=== PATIENT | female | born 1955 | race Caucasian/White ===

== ENCOUNTER 2022-10-10 11:18 | Outpatient (CLI) | payer MEDICARE, OTHER | END 2022-10-10 11:19 | disposition home or self-care (01) | LOC: SCSRAD 11:18 | PROVIDERS: ATTEND Internal Medicine Rheumatology | DX: M54.50 Low back pain, unspecified (principal); M47.817 Spondylosis without myelopathy or radiculopathy, lumbosacral region; M47.816 Spondylosis without myelopathy or radiculopathy, lumbar region; M77.8 Other enthesopathies, not elsewhere classified; M47.896 Other spondylosis, lumbar region | CPT/HCPCS: 72100 ==

== ENCOUNTER 2022-10-19 09:46 | Outpatient (CLI) | payer MEDICARE, OTHER | END 2022-10-19 09:47 | disposition home or self-care (01) | LOC: SCSCT 09:46 | PROVIDERS: ATTEND Orthopaedic Surgery | DX: M06.852 Other specified rheumatoid arthritis, left hip (principal); M05.862 Other rheumatoid arthritis with rheumatoid factor of left knee; M16.12 Unilateral primary osteoarthritis, left hip ==

== ENCOUNTER 2022-11-23 07:22 | Outpatient (CLI) | payer MEDICARE, OTHER ==
[2022-11-23 09:05] LABS: #Basophils 0.1 10x3/uL (0.0-0.2); #Eosinphils 0.2 10x3/uL (0.0-0.5); #Monocytes 0.8 10x3/uL (0.0-1.1); #Neutrophils 3.8 10x3/uL (1.5-8.4); %Eosinophils 2.4 % (0.0-6.0); %Lymphocytes 22.9 % (18.0-47.0); %Monocytes 12.9 % (0.0-10.0); %Neutrophils 60.3 % (40.0-75.0); Hemoglobin 12.7 g/dL (12.0-15.5); Mean Corpuscular HGB CONC 34.2 g/dL (32.0-36.0); Mean Corpuscular Hemoglobin 31.4 pg (27.0-33.0); Mean Corpuscular Volume 91.8 fl (81.6-98.3); Mean Platelet Volume 8.8 fl (7.4-10.4); Platelet Count 254 10x3/uL (150-450); RBC Distribution Width 13.1 % (11.5-14.5); Red Blood Cell (RBC) Count 4.04 10x6/uL (3.90-5.03); White Blood Cell (WBC) Count 6.3 10x3/uL (3.5-10.5)
[2022-11-23 09:17] LABS: Prothrombin Time 10.4 sec (9.5-12.1)
[2022-11-23 09:21] LABS: Anion Gap 14 mmol/L (10-20); BUN (Urea Nitrogen) 15 mg/dL (9.8-20.1); Calc. Creatinine Clearance 0 mL/min (70-130); Carbon Dioxide 26 mmol/L (23-31); Chloride 99 mmol/L (98-107); Estimated GFR 95; Glucose 99 mg/dL (80-115); Potassium 3.9 mmol/L (3.5-5.1); Sodium 135 mmol/L (136-145)
== END 2022-11-23 07:23 | disposition home or self-care (01) ==
LOC: LABBT 07:22
PROVIDERS: ATTEND Orthopaedic Surgery
DX: Z01.812 Encounter for preprocedural laboratory examination (principal); M06.852 Other specified rheumatoid arthritis, left hip
CPT/HCPCS: 80048; 85025; 85610; 87081

== ENCOUNTER 2022-11-28 06:38 | Observation (INO) | payer MEDICARE, OTHER ==
[2022-11-28] MEDS ORDERED: CEFAZOLIN 2 GM VIAL ONE (07:09)
[2022-11-28] MEDS ORDERED: Sodium Chloride 0.9% 100 ML ONE ×2 (07:09→07:11)
[2022-11-28] MEDS ORDERED: Tranexamic Acid 1,000 MG/10 ML VIAL ONE (07:09)
[2022-11-28] MEDS ORDERED: Vancomycin (BATCH) 1.5 GRAM/300 ML BAG ONE (07:11)
[2022-11-28] MEDS ORDERED: Midazolam HCl 2 mg/2 ml Vial ONE (07:12)
[2022-11-28] MEDS ORDERED: Fentanyl 100 MCG/2 ML VIAL ONE (07:12)
[2022-11-28] MEDS ORDERED: Ropivacaine 0.5% HCl/PF (150 MG/30 ML VIAL) ONE (07:16)
[2022-11-28 07:35] LABS: SARS-CoV-2 NAA Rapid Test Not Detected (NotDetected)
[2022-11-28] MEDS ORDERED: Promethazine HCl 25 MG/ML VIAL IM PRN ×2 (07:45→10:28)
[2022-11-28] MEDS ORDERED: traMADol HCl 50 MG TAB PO PRN ×2 (07:45)
[2022-11-28] MEDS ORDERED: diphenhydrAMINE 50 MG/ML VIAL IVP PRN (07:45)
[2022-11-28] MEDS ORDERED: Naloxone HCl 0.4 mg/ml Vial IV PRN (07:45)
[2022-11-28] MEDS ORDERED: Naloxone HCl 0.4 mg/ml Vial IVP PRN (07:45)
[2022-11-28] MEDS ORDERED: Promethazine HCl 25 MG SUPP PR PRN (07:45)
[2022-11-28] MEDS ORDERED: Moisturizing Cream (Eucerin) 113 GM JAR TOP PRN (07:45)
[2022-11-28] MEDS ORDERED: Ondansetron PF 4 MG/2 ML Vial IVP PRN ×2 (07:45→10:28)
[2022-11-28] MEDS ORDERED: HYDROcodone/Acetaminophen 5/325 mg Tablet PO PRN ×2 (07:45)
[2022-11-28] MEDS ORDERED: diphenhydrAMINE 50 MG/ML VIAL IM PRN (07:45)
[2022-11-28] MEDS ORDERED: diphenhydrAMINE 25 MG CAP PO PRN ×2 (07:45→10:28)
[2022-11-28] MEDS ORDERED: FENTANYL 500 MCG/10 ML VIAL 500 MCG, Bupivacaine 0.75% 10 ML in Sodium Chloride 0.9% 80 ML EPIDURAL SCH (07:45)
[2022-11-28] MEDS ORDERED: Zolpidem Tartrate 5 MG TAB PO PRN ×2 (07:45→10:28)
[2022-11-28] MEDS ORDERED: Bupivacaine 0.25% 10 ML VIAL EPIDURAL PRN (07:45)
[2022-11-28] MEDS ORDERED: Lidocaine 1.5% w/Epi 1:200K 30 ML VIAL (Epid Use) ONE (07:50)
[2022-11-28] MEDS ORDERED: PROPOFOL 200 MG/20 ML VIAL ONE (08:08)
[2022-11-28] MEDS ORDERED: ePHEDrine 50 MG/ML VIAL ONE (08:08)
[2022-11-28] MEDS ORDERED: Lidocaine 1% PF 5 ML VIAL ONE (08:08)
[2022-11-28] MEDS ORDERED: PHENYLEPHRINE-NS 100 MCG/ML 10 ML SYRINGE ONE (08:08)
[2022-11-28] MEDS ORDERED: Rocuronium Bromide 10 MG/ML (10ML VIAL) ONE (08:08)
[2022-11-28] MEDS ORDERED: Ondansetron PF 4 MG/2 ML Vial ONE (08:08)
[2022-11-28] MEDS ORDERED: SUGAMMADEX SODIUM 200 MG/2 ML VIAL ONE (09:44)
[2022-11-28] MEDS ORDERED: Acetaminophen 325 MG TAB PO PRN (10:28)
[2022-11-28] MEDS ORDERED: Aspirin 81 mg Enteric Coated Tablet PO SCH (11:15)
[2022-11-28 13:18] VITALS: BMI 40.5
[2022-11-28] MEDS: Sodium Chloride 0.9% 1,000 ML IV SCH ×2 (13:21→23:45)
[2022-11-28] MEDS: Ketorolac Tromethamine 30 MG/ML VIAL IVP SCH ×3 (13:21→23:45)
[2022-11-28] MEDS: CEFAZOLIN 2 GM in Sodium Chloride 0.9% 100 ML IVPB SCH ×2 (16:36→23:45)
[2022-11-28] MEDS: Aspirin 81 mg Enteric Coated Tablet PO SCH (19:55)
[2022-11-28] MEDS ORDERED: Vancomycin 1.5 GRAM/300 ML BAG 1.5 GM in Premix Bag 1 BAG IVPB SCH (20:00)
[2022-11-29] MEDS: Ketorolac Tromethamine 30 MG/ML VIAL IVP SCH ×2 (05:27→12:06)
[2022-11-29 06:41] LABS: Hemoglobin 10.9 g/dL (12.0-16.0); Mean Corpuscular HGB CONC 32.6 g/dL (32.0-36.0); Mean Corpuscular Volume 98.2 fl (78.0-98.0); Mean Platelet Volume 6.3 fL (7.4-10.4); Platelet Count 228 10x3/uL (130-400); RBC Distribution Width 12.4 % (11.5-14.5); Red Blood Cell (RBC) Count 3.42 mill/uL (4.20-5.40); White Blood Cell (WBC) Count 10.2 10x3/uL (4.8-10.8)
[2022-11-29] MEDS: Sodium Chloride 0.9% 1,000 ML IV SCH (07:25)
[2022-11-29] MEDS ORDERED: Ferrous Gluconate 324 MG TAB PO SCH (08:00)
[2022-11-29] MEDS ORDERED: Senokot S 8.6-50 MG TAB PO SCH (09:00)
[2022-11-29] MEDS ORDERED: Multivitamin W/ Minerals 1 TAB PO SCH (09:00)
[2022-11-29] MEDS: Aspirin 81 mg Enteric Coated Tablet PO SCH (09:23)
[2022-11-29] MEDS ORDERED: HYDROcodone/Acetaminophen 10/325 mg Tablet PO PRN (09:27)
[2022-11-29] MEDS: HYDROcodone/Acetaminophen 10/325 mg Tablet PO PRN ×2 (09:30→14:12)
[2022-11-29] MEDS ORDERED: Cyclobenzaprine 10 MG TAB PO PRN (10:30)
[2022-11-29] MEDS ORDERED: traZODone HCl 50 MG TAB PO PRN (10:45)
[2022-11-29] MEDS ORDERED: Levothyroxine Sodium 75 MCG TAB PO SCH (10:45)
[2022-11-29] MEDS ORDERED: sulfaSALAzine 500 MG TAB PO SCH ×2 (11:00→21:00)
[2022-11-29] MEDS ORDERED: Meloxicam 15 MG TAB PO SCH (11:00)
[2022-11-29] MEDS ORDERED: Hydroxychloroquine Sulfate 200 MG TAB PO SCH (11:00)
[2022-11-29] MEDS ORDERED: DULoxetine 30 MG CAP PO SCH (11:00)
[2022-11-29] MEDS ORDERED: Hydrochlorothiazide 25 MG TAB PO SCH (11:00)
[2022-11-29] MEDS ORDERED: Losartan 25 MG TAB PO SCH (11:00)
[2022-11-29] MEDS ORDERED: Cephalexin 250 MG CAP PO SCH (12:00)
[2022-11-29 12:46] VITALS: BP 117/80; TEMP 98.6
[2022-11-29] MEDS ORDERED: Rosuvastatin 10 MG TAB PO SCH (21:00)
[2022-11-30] MEDS ORDERED: Levothyroxine Sodium 75 MCG TAB PO SCH (06:00)
[2022-11-30] MEDS ORDERED: Hydrochlorothiazide 25 MG TAB PO SCH (09:00)
[2022-11-30] MEDS ORDERED: Losartan 25 MG TAB PO SCH (09:00)
[2022-11-30] MEDS ORDERED: Meloxicam 15 MG TAB PO SCH (09:00)
[2022-11-30] MEDS ORDERED: DULoxetine 30 MG CAP PO SCH (09:00)
[2022-11-30] MEDS ORDERED: Hydroxychloroquine Sulfate 200 MG TAB PO SCH (09:00)
== END 2022-11-29 16:23 | disposition home or self-care (01) ==
LOC: SDC 06:38 → SJJU 12:59
PROVIDERS: ADMIT Orthopaedic Surgery; ATTEND Orthopaedic Surgery
PROC: 0SRB04A Replacement of Left Hip Joint with Ceramic on Polyethylene Synthetic Substitute, Uncemented, Open Approach (ICD-10-PCS; principal; 2022-11-28)
DX: M06.852 Other specified rheumatoid arthritis, left hip (principal); M62.89 Other specified disorders of muscle; E03.9 Hypothyroidism, unspecified; K21.9 Gastro-esophageal reflux disease without esophagitis; I10 Essential (primary) hypertension; R73.03 Prediabetes; Z79.1 Long term (current) use of non-steroidal anti-inflammatories (NSAID); Z79.890 Hormone replacement therapy; Z79.899 Other long term (current) drug therapy; Z88.8 Allergy status to other drugs, medicaments and biological substances; Z91.018 Allergy to other foods; Z98.84 Bariatric surgery status; Z20.822 Contact with and (suspected) exposure to COVID-19
CPT/HCPCS: 27130; 72170; 73501; 85027; 97110 ×2; 97116; 97530 ×2; 97535 ×2; C1776; J3010 ×2; J3370; U0002; 36415; J1885; J2001; J2250; J2405; J2704; J2795; J3490; J7050

== ENCOUNTER 2023-09-06 07:42 | Outpatient (CLI) | payer MEDICARE, OTHER ==
[2023-09-06 08:49] LABS: #Basophils 0.1 10x3/uL (0.0-0.2); #Eosinphils 0.4 10x3/uL (0.0-0.5); #Monocytes 0.6 10x3/uL (0.0-1.1); %Basophils 1.1 % (0.0-2.0); %Eosinophils 6.2 % (0.0-6.0); %Lymphocytes 21.3 % (18.0-47.0); %Monocytes 9.9 % (0.0-10.0); %Neutrophils 61.2 % (40.0-75.0); Hemoglobin 11.4 g/dL (12.0-15.5); Mean Corpuscular HGB CONC 31.7 g/dL (32.0-36.0); Mean Corpuscular Hemoglobin 29.1 pg (27.0-33.0); Mean Corpuscular Volume 91.8 fl (81.6-98.3); Mean Platelet Volume 8.9 fl (7.4-10.4); Platelet Count 252 10x3/uL (150-450); RBC Distribution Width 14.8 % (11.5-14.5); Red Blood Cell (RBC) Count 3.92 10x6/uL (3.90-5.03); White Blood Cell (WBC) Count 6.5 10x3/uL (3.5-10.5)
[2023-09-06 09:15] LABS: Prothrombin Time 10.7 sec (9.5-12.1)
[2023-09-06 09:19] LABS: Anion Gap 15 mmol/L (10-20); BUN (Urea Nitrogen) 16 mg/dL (9.8-20.1); Calc. Creatinine Clearance 0 mL/min (70-130); Calcium 9.7 mg/dL (7.8-10.44); Carbon Dioxide 26 mmol/L (23-31); Chloride 102 mmol/L (98-107); Estimated GFR 84; Glucose 97 mg/dL (80-115); Potassium 3.9 mmol/L (3.5-5.1); Sodium 139 mmol/L (136-145)
== END 2023-09-06 07:43 | disposition home or self-care (01) ==
LOC: LABBT 07:42
PROVIDERS: ATTEND Orthopaedic Surgery
DX: Z01.818 Encounter for other preprocedural examination (principal); M17.11 Unilateral primary osteoarthritis, right knee
CPT/HCPCS: 80048; 85025; 85610; 87081; 93005; 93010

== ENCOUNTER 2023-09-11 05:35 | Observation (INO) | payer MEDICARE, OTHER ==
[2023-09-06 08:11] VITALS: BMI 38.7
[2023-09-11] MEDS ORDERED: Tranexamic Acid 1,000 MG/10 ML VIAL ONE ×2 (05:48→13:10)
[2023-09-11] MEDS ORDERED: Vancomycin (BATCH) 1.5 GM/300 ML BAG ONE (05:48)
[2023-09-11] MEDS ORDERED: Sodium Chloride 0.9% 100 ML ONE ×3 (05:48→15:14)
[2023-09-11] MEDS ORDERED: Midazolam HCl 2 mg/2 ml Vial ONE (06:16)
[2023-09-11] MEDS ORDERED: fentaNYL 50 mcg/mL 1 mL Vial ONE ×8 (06:16→14:31)
[2023-09-11] MEDS ORDERED: Lidocaine 1% (PF) 30 ML VIAL ONE (06:16)
[2023-09-11] MEDS ORDERED: Bupivacaine PF 0.5% 30 ML VIAL ONE (06:16)
[2023-09-11] MEDS ORDERED: Bupivacaine 0.25% HCL 30 ML VIAL ONE (06:24)
[2023-09-11] MEDS ORDERED: EPINEPHrine 1 MG/ML AMP ONE (06:24)
[2023-09-11] MEDS ORDERED: CEFAZOLIN 2 GM VIAL ONE ×2 (06:48→15:14)
[2023-09-11] MEDS ORDERED: PROPOFOL 200 MG/20 ML VIAL ONE (07:30)
[2023-09-11] MEDS ORDERED: Lidocaine 1% PF 5 ML VIAL ONE (07:30)
[2023-09-11] MEDS ORDERED: Ondansetron PF 4 MG/2 ML Vial ONE ×2 (07:30→14:10)
[2023-09-11] MEDS ORDERED: fentaNYL 50 mcg/mL 1 mL Vial SLOW IVP PRN (08:09)
[2023-09-11] MEDS ORDERED: Promethazine HCl 25 MG/ML VIAL IM PRN ×2 (08:15)
[2023-09-11] MEDS ORDERED: HYDROcodone/Acetaminophen 10/325 mg Tablet PO PRN ×2 (08:15)
[2023-09-11] MEDS ORDERED: Ondansetron PF 4 MG/2 ML Vial IVP PRN (08:15)
[2023-09-11] MEDS ORDERED: Zolpidem Tartrate 5 MG TAB PO PRN (08:15)
[2023-09-11] MEDS ORDERED: traMADol HCl 50 MG TAB PO PRN ×2 (08:15)
[2023-09-11] MEDS ORDERED: Ondansetron HCl/PF 4 MG/2 ML Vial IVP PRN (08:15)
[2023-09-11] MEDS ORDERED: Ropivacaine 0.2% 550 ML 550 ML NERVE BLCK SCH (08:15)
[2023-09-11] MEDS ORDERED: diphenhydrAMINE 25 MG CAP PO PRN (13:09)
[2023-09-11] MEDS ORDERED: Acetaminophen 325 MG TAB PO PRN (13:09)
[2023-09-11] MEDS ORDERED: Ketorolac Tromethamine 30 MG/ML VIAL ONE (13:36)
[2023-09-11] MEDS: Ketorolac Tromethamine 30 MG/ML VIAL IVP SCH ×3 (13:37→23:59)
[2023-09-11] MEDS: CEFAZOLIN 2 GM in Sodium Chloride 0.9% 100 ML IVPB SCH ×2 (15:15→21:01)
[2023-09-11] MEDS: Sodium Chloride 0.9% 1,000 ML IV SCH (17:24)
[2023-09-11] MEDS: Aspirin 81 mg Enteric Coated Tablet PO SCH (20:51)
[2023-09-12] MEDS: Sodium Chloride 0.9% 1,000 ML IV SCH ×2 (00:04→09:07)
[2023-09-12] MEDS: Ketorolac Tromethamine 30 MG/ML VIAL IVP SCH ×2 (05:28→12:07)
[2023-09-12 05:38] LABS: Hematocrit 28.3 % (36.0-47.0); Hemoglobin 8.9 g/dL (12.0-16.0); Mean Corpuscular HGB CONC 31.4 g/dL (32.0-36.0); Mean Corpuscular Volume 92.2 fl (78.0-98.0); Mean Platelet Volume 8.7 fL (7.4-10.4); Platelet Count 185 10x3/uL (130-400); RBC Distribution Width 14.7 % (11.5-14.5); Red Blood Cell (RBC) Count 3.07 mill/uL (4.20-5.40); White Blood Cell (WBC) Count 8.7 10x3/uL (4.8-10.8)
[2023-09-12 06:09] LABS: Anion Gap 12 mmol/L (10-20); BUN (Urea Nitrogen) 10 mg/dL (9.8-20.1); Calc. Creatinine Clearance 126 mL/min (70-130); Calcium 8.2 mg/dL (7.8-10.44); Carbon Dioxide 28 mmol/L (23-31); Chloride 100 mmol/L (98-107); Estimated GFR 94; Glucose 129 mg/dL (80-115); Potassium 3.5 mmol/L (3.5-5.1); Sodium 136 mmol/L (136-145)
[2023-09-12 08:22] VITALS: TEMP 98.4
[2023-09-12] MEDS: Aspirin 81 mg Enteric Coated Tablet PO SCH (08:56)
[2023-09-12] MEDS ORDERED: Senokot S 8.6-50 MG TAB PO SCH (09:00)
[2023-09-12] MEDS ORDERED: Multivitamin W/ Minerals 1 TAB PO SCH (09:00)
[2023-09-12] MEDS ORDERED: Ferrous Gluconate 324 MG TAB PO SCH (09:00)
[2023-09-12 11:58] VITALS: BP 135/82
== END 2023-09-12 12:05 | disposition home or self-care (01) ==
LOC: SDC 05:35 → SURG A 16:46
PROVIDERS: ADMIT Orthopaedic Surgery; ATTEND Orthopaedic Surgery
PROC: 0SRC0JZ Replacement of Right Knee Joint with Synthetic Substitute, Open Approach (ICD-10-PCS; principal; 2023-09-11)
DX: M17.11 Unilateral primary osteoarthritis, right knee (principal); I10 Essential (primary) hypertension; E11.9 Type 2 diabetes mellitus without complications; E03.9 Hypothyroidism, unspecified; K21.9 Gastro-esophageal reflux disease without esophagitis; Z90.49 Acquired absence of other specified parts of digestive tract; Z88.8 Allergy status to other drugs, medicaments and biological substances; Z79.82 Long term (current) use of aspirin; Z79.890 Hormone replacement therapy; Z79.899 Other long term (current) drug therapy
CPT/HCPCS: 27447; 73560; 80048; 85027; 97110 ×2; 97116; 97530 ×2; A4306; C1776; J3010; J3370; J0171; J1885; J2001; J2250; J2405; J2704; J2795; J3490; S0020

== ENCOUNTER 2024-01-23 10:26 | Outpatient (CLI) | payer MEDICARE, OTHER ==
[2024-01-23 12:04] LABS: #Basophils 0.1 10x3/uL (0.0-0.2); #Eosinphils 0.3 10x3/uL (0.0-0.5); #Monocytes 0.9 10x3/uL (0.0-1.1); #Neutrophils 4.9 10x3/uL (1.5-8.4); %Basophils 0.9 % (0.0-2.0); %Eosinophils 3.2 % (0.0-6.0); %Lymphocytes 20.9 % (18.0-47.0); %Monocytes 12.1 % (0.0-10.0); %Neutrophils 62.6 % (40.0-75.0); Hematocrit 37.3 % (34.9-44.5); Hemoglobin 11.4 g/dL (12.0-15.5); Mean Corpuscular HGB CONC 30.6 g/dL (32.0-36.0); Mean Corpuscular Hemoglobin 26.1 pg (27.0-33.0); Mean Corpuscular Volume 85.6 fl (81.6-98.3); Mean Platelet Volume 8.4 fl (7.4-10.4); Platelet Count 288 10x3/uL (150-450); Red Blood Cell (RBC) Count 4.36 10x6/uL (3.90-5.03); White Blood Cell (WBC) Count 7.8 10x3/uL (3.5-10.5)
[2024-01-23 12:22] LABS: Anion Gap 14 mmol/L (10-20); BUN (Urea Nitrogen) 17 mg/dL (9.8-20.1); Calc. Creatinine Clearance 0 mL/min (70-130); Calcium 9.5 mg/dL (7.8-10.44); Carbon Dioxide 26 mmol/L (23-31); Chloride 103 mmol/L (98-107); Estimated GFR 83; Glucose 89 mg/dL (80-115); Sodium 139 mmol/L (136-145)
[2024-01-23 12:39] LABS: Prothrombin Time 10.5 sec (9.5-12.1)
== END 2024-01-23 10:27 | disposition home or self-care (01) ==
LOC: LABBT 10:26
PROVIDERS: ATTEND Orthopaedic Surgery
DX: Z01.818 Encounter for other preprocedural examination (principal); M17.12 Unilateral primary osteoarthritis, left knee
CPT/HCPCS: 80048; 85025; 85610; 87081; 93005; 93010

== ENCOUNTER 2024-01-29 05:38 | Observation (INO) | payer MEDICARE, OTHER ==
[2024-01-23 11:36] VITALS: BMI 39.2
[2024-01-29] MEDS ORDERED: Tranexamic Acid 1,000 MG/10 ML VIAL ONE (06:02)
[2024-01-29] MEDS ORDERED: Sodium Chloride 0.9% 100 ML ONE ×2 (06:02→06:46)
[2024-01-29] MEDS ORDERED: Vancomycin (BATCH) 1.5 GM/300 ML BAG ONE (06:02)
[2024-01-29] MEDS ORDERED: EPINEPHrine 1 MG/ML VIAL ONE (06:15)
[2024-01-29] MEDS ORDERED: Bupivacaine 0.25% HCL 30 ML VIAL ONE (06:15)
[2024-01-29] MEDS ORDERED: PROPOFOL 20 ML ONE (06:25)
[2024-01-29] MEDS ORDERED: Midazolam HCl 2 mg/2 ml Vial ONE (06:25)
[2024-01-29] MEDS ORDERED: fentaNYL PF 100 MCG/2 ML SYRINGE ONE (06:25)
[2024-01-29] MEDS ORDERED: Lidocaine 1% PF 5 ML VIAL ONE (06:26)
[2024-01-29] MEDS ORDERED: Lidocaine 2% 6 ML (Jelly) SYR ONE (06:26)
[2024-01-29] MEDS ORDERED: Ondansetron PF 4 MG/2 ML Vial ONE (06:26)
[2024-01-29] MEDS ORDERED: Dexamethasone 20 MG/5 ML VIAL ONE (06:26)
[2024-01-29] MEDS ORDERED: CEFAZOLIN 2 GM VIAL ONE (06:46)
[2024-01-29] MEDS ORDERED: fentaNYL 50 mcg/mL 1 mL Vial SLOW IVP PRN (07:28)
[2024-01-29] MEDS ORDERED: Promethazine HCl 25 MG/ML VIAL IM PRN ×2 (07:30→09:10)
[2024-01-29] MEDS ORDERED: Zolpidem Tartrate 5 MG TAB PO PRN (07:30)
[2024-01-29] MEDS ORDERED: traMADol HCl 50 MG TAB PO PRN ×2 (07:30)
[2024-01-29] MEDS ORDERED: Ropivacaine 0.2% 550 ML 550 ML NERVE BLCK SCH (07:30)
[2024-01-29] MEDS ORDERED: HYDROcodone/Acetaminophen 10/325 mg Tablet PO PRN ×2 (07:30)
[2024-01-29] MEDS ORDERED: Ondansetron PF 4 MG/2 ML Vial IVP PRN (07:30)
[2024-01-29] MEDS ORDERED: fentaNYL 50 mcg/mL 1 mL Vial ONE ×5 (08:01→10:12)
[2024-01-29] MEDS ORDERED: Bupivacaine PF 0.5% 30 ML VIAL ONE (08:14)
[2024-01-29] MEDS ORDERED: Ondansetron HCl/PF 4 MG/2 ML Vial IVP PRN (09:10)
[2024-01-29] MEDS ORDERED: diphenhydrAMINE 25 MG CAP PO PRN (09:27)
[2024-01-29] MEDS ORDERED: Acetaminophen 325 MG TAB PO PRN (09:27)
[2024-01-29] MEDS ORDERED: Ketorolac Tromethamine 30 MG (1 mL) VIAL ONE (10:12)
[2024-01-29] MEDS ORDERED: HYDROmorphone 0.5 MG/0.5 ML SYRINGE ONE ×2 (10:41→10:51)
[2024-01-29] MEDS: Ketorolac Tromethamine 30 MG (1 mL) VIAL IVP SCH (12:35)
[2024-01-29] MEDS: Sodium Chloride 0.9% 1,000 ML IV SCH (12:36)
[2024-01-29] MEDS: CEFAZOLIN 2 GM in Sodium Chloride 0.9% 100 ML IVPB SCH (14:23)
[2024-01-29] MEDS: Aspirin 81 mg Enteric Coated Tablet PO SCH (20:04)
[2024-01-29] MEDS: Senokot S 8.6-50 MG TAB PO SCH (20:04)
[2024-01-29] MEDS: Ferrous Gluconate 324 MG TAB PO SCH (20:04)
[2024-01-30 04:02] LABS: Hematocrit 30.1 % (36.0-47.0); Hemoglobin 9.3 g/dL (12.0-16.0); Mean Corpuscular HGB CONC 30.9 g/dL (32.0-36.0); Mean Corpuscular Volume 87.2 fl (78.0-98.0); Mean Platelet Volume 8.9 fL (7.4-10.4); Platelet Count 243 10x3/uL (130-400); Red Blood Cell (RBC) Count 3.45 mill/uL (4.20-5.40); White Blood Cell (WBC) Count 10.2 10x3/uL (4.8-10.8)
[2024-01-30] MEDS: Multivitamin W/ Minerals 1 TAB PO SCH (08:21)
[2024-01-30 09:03] VITALS: BP 147/75; TEMP 98.3
== END 2024-01-30 10:45 | disposition home or self-care (01) ==
LOC: SDC 05:38 → SJJU 09:20
PROVIDERS: ADMIT Orthopaedic Surgery; ATTEND Orthopaedic Surgery
PROC: 0SRD0JZ Replacement of Left Knee Joint with Synthetic Substitute, Open Approach (ICD-10-PCS; principal; 2024-01-29)
DX: M17.12 Unilateral primary osteoarthritis, left knee (principal); E03.9 Hypothyroidism, unspecified; I10 Essential (primary) hypertension; K21.9 Gastro-esophageal reflux disease without esophagitis; E11.9 Type 2 diabetes mellitus without complications; Z96.651 Presence of right artificial knee joint; Z96.642 Presence of left artificial hip joint; Z91.018 Allergy to other foods; Z79.899 Other long term (current) drug therapy; Z79.890 Hormone replacement therapy
CPT/HCPCS: 27447; 73560; 85027; 97110 ×2; 97116 ×2; 97530; A4306; C1713; C1776; J0171; J3010; J3370; 36415; J0665; J1100; J1170; J1885; J2250; J2405; J2704; J2795; J3490

== ENCOUNTER 2024-02-01 08:49 | Emergency (ER) | payer MEDICARE, OTHER ==
[2024-02-01 09:58] LABS: #Basophils 0.1 thou/uL (0.0-0.2); #Eosinphils 0.4 thou/uL (0.0-0.7); #Monocytes 1.1 thou/uL (0.11-0.59); #Neutrophils 5.7 thou/uL (1.40-6.50); %Basophils 0.6 % (0.0-1.0); %Eosinophils 4.8 % (0.0-10.0); %Lymphocytes 17.2 % (21.0-51.0); %Monocytes 12.5 % (0.0-10.0); %Neutrophils 64.3 % (42.0-75.0); Hematocrit 29.8 % (36.0-47.0); Hemoglobin 9.2 g/dL (12.0-16.0); Mean Corpuscular HGB CONC 30.9 g/dL (32.0-36.0); Mean Corpuscular Hemoglobin 26.6 pg (27.0-31.0); Mean Corpuscular Volume 86.1 fl (78.0-98.0); Mean Platelet Volume 8.9 fL (7.4-10.4); Platelet Count 222 10x3/uL (130-400); RBC Distribution Width 15.3 % (11.5-14.5); Red Blood Cell (RBC) Count 3.46 mill/uL (4.20-5.40); White Blood Cell (WBC) Count 8.9 10x3/uL (4.8-10.8)
[2024-02-01 10:27] LABS: Anion Gap 12 mmol/L (10-20); BUN (Urea Nitrogen) 13 mg/dL (9.8-20.1); Calc. Creatinine Clearance 0 mL/min (70-130); Calcium 9.5 mg/dL (7.8-10.44); Carbon Dioxide 28 mmol/L (23-31); Chloride 100 mmol/L (98-107); Estimated GFR 96; Glucose 106 mg/dL (80-115); Potassium 3.9 mmol/L (3.5-5.1); Sodium 136 mmol/L (136-145)
== END 2024-02-01 11:10 | disposition home or self-care (01) ==
LOC: ERS 08:49
DX: T81.9XXA Unspecified complication of procedure, initial encounter (principal); R22.41 Localized swelling, mass and lump, right lower limb; I10 Essential (primary) hypertension
CPT/HCPCS: 36415; 80048; 85025

== ENCOUNTER 2024-09-22 14:24 | Outpatient (CLI) | payer MEDICARE, OTHER | END 2024-09-22 14:25 | disposition home or self-care (01) | LOC: SCSRAD 14:24 | PROVIDERS: ATTEND Internal Medicine Rheumatology | DX: M06.041 Rheumatoid arthritis without rheumatoid factor, right hand (principal); M06.042 Rheumatoid arthritis without rheumatoid factor, left hand; M79.641 Pain in right hand; M79.642 Pain in left hand; M19.042 Primary osteoarthritis, left hand; M19.041 Primary osteoarthritis, right hand ==